=== PATIENT | female | born 2000 | race Two or more races ===

== ENCOUNTER 2024-04-28 14:37 | Emergency (ER) | payer MEDICAID, SELFPAY ==
[2024-04-28 14:58] VITALS: PULSE 108; O2SAT 98
[2024-04-28 15:22] VITALS: BP 124/85; PULSE 100; RESP 12; TEMP 37.2; O2SAT 98; BMI 25.7
--- NOTE | 2024-04-28 15:50 | PD.EDRME ---
Rapid Medical Screening Exam E Arrival date/time: 04/28/24 14:37 23-year-old female presents emergency department complaint of nausea vomiting abdominal pain Chief Complaint: Abdominal Pain Vital signs: Vital Signs Temperature 98.9 F 04/28/24 15:22 Pulse Rate 100 04/28/24 15:22 Respiratory Rate 12 04/28/24 15:22 Blood Pressure 124/85 H 04/28/24 15:22 Pulse Oximetry (%) 98 04/28/24 15:22 Oxygen Delivery Method Room Air 04/28/24 15:22
--- NOTE | 2024-04-28 15:55 | PC.NURSE ---
[email or web address]. checked outside and lobby.
[2024-04-28] MEDS: ONDANSETRON ODT 4 MG TABRAP PO ×2 (16:09→19:40)
[2024-04-28 16:32] LABS: Basophils % (Auto) 1 % (0-2.5); Eosinophils # (Auto) 0.2 Thou/mm3 (0.0-0.5); Eosinophils % (Auto) 2 % (0-10); Hematocrit 38.2 % (36.0-46.0); Hemoglobin 13.1 g/dL (12.0-16.0); Immature Granulocytes % (Auto) 0 % (0-0); Immature Granulocytes Auto 0.02 Thou/mm3 (0.00-0.00); Lymphocytes # (Auto) 2.6 Thou/mm3 (1.0-4.8); Lymphocytes % (Auto) 35 % (10-50); Mean Corpuscular HGB Conc 34.3 g/dl (31.0-37.0); Mean Corpuscular Volume 88 fL (80-100); Monocytes # (Auto) 0.5 Thou/mm3 (0.0-0.8); Monocytes % (Auto) 6 % (0-12); Neutrophils # (Auto) 4.2 Thou/mm3 (1.8-7.7); Neutrophils % (Auto) 56 % (37-80); Nucleated Red Blood Cell % 0 /100 WBC (0); Platelet Count 315 Thou/mm3 (140-440); RDW Standard Deviation 41.1 fL (36.4-46.3); Red Blood Count 4.36 Miln/mm3 (4.00-5.20); White Blood Count 7.4 Thou/mm3 (3.6-11.0)
[2024-04-28 16:32] LABS: Collection Type, Urine Clean Catch
[2024-04-28 16:41] LABS: Bilirubin,Urine Negative (Negative); Blood,Urine Trace (Negative); Clarity,Urine Clear (Clear/Hazy); Color,Urine Lt-Yellow (Lt Yel-Yel); Culture Indicated,Urine Not Indicated; Glucose, Urine Negative (Negative); HCG Qualitative,Urine Negative; Ketones,Urine Negative (Negative); Leukocyte Esterase,Urine Negative (Negative); Nitrite,Urine Negative (Negative); PH,Urine 6.5 (5.0-7.0); Protein,Urine Negative (Neg - Trace); RBC,Urine 2 /hpf (0-3); Specific Gravity,Urine 1.012 (1.001-1.035); Squamous Epithelial Cell,Urine 1 /hpf (0-5); Urobilinogen,Urine Negative mg/dL (0.0-1.0); WBC,Urine 1 /hpf (0-5)
[2024-04-28 16:52] LABS: Alanine Aminotransferase 10 U/L (10-49); Albumin, Serum 4.7 gm/dL (3.5-5.0); Albumin/Globulin Ratio 1.7 (1.2-2.2); Alkaline Phosphatase 73 U/L (46-116); Anion Gap 9 (7-16); Aspartate Amino Transferase 14 U/L (0-34); BUN/Creatinine Ratio 14 Ratio (12-20); Bilirubin,Total 0.5 mg/dL (0.3-1.2); Blood Urea Nitrogen 11 mg/dL (9-23); Calcium 9.7 mg/dL (8.3-10.6); Calcium (Corrected) 9.7 mg/dL (8.5-10.1); Carbon Dioxide 26.2 mMol/L (20.0-31.0); Chloride 103 mMol/L (98-107); Creatinine (Component) 0.8 mg/dL (0.6-1.3); Estimated Creatinine Clearance 105.4 mL/min (>60); Globulin 2.8 gm/dL (2.3-3.5); Glucose 106 mg/dL (74-106); Lipase 38 U/L (12-53); Osmolality,Calculated 275 (275-295); Potassium 3.6 mMol/L (3.4-5.1); Sodium 138 mMol/L (136-145); Total Protein 7.5 gm/dL (5.7-8.2); eGFR > 60 See Note
--- NOTE | 2024-04-28 19:26 | EDNOTE_ITS ---
Nausea/Vomit./Diarrhea-RME/HPI General Chief complaint: Abdominal Pain Stated complaint: RIGHT LOWER QUADRANT PAIN WITH N/V Time Seen by Provider: 04/28/24 18:29 Arrival date/time: 04/28/24 14:37 Limitations: no limitations RME / HPI RME / HPI Narrative: 04/28/24 14:37 23-year-old female presents emergency department complaint of nausea vomiting abdominal pain DR. LANCE MAIN ED EVALUATION: 23 year old female presents to the Emergency Department with complaints of nausea, vomiting, diarrhea, and right lower abdominal pain. Symptoms are moderate. Onset of symptoms since Saturday night, 3 days ago. She states the pain was aching and mild to moderate; she took Tylenol for the pain. PMHx: Denies any PMHx, surgeries, daily medications, or known allergies. Social Hx: No tobacco, alcohol, or substance use. Related Data Home Medications ?Medication ?Instructions ?Recorded ?Confirmed No Known Home Medications 04/09/22 04/09/22 Allergies Allergy/AdvReac Type Severity Reaction Status Date / Time No Known Allergies Allergy Verified 04/28/24 15:00 Review of Systems Review of Systems Systems Reviewed: All systems reviewed, normal except as documented Narrative Review of Systems: GEN: No fever, no chills, no weight loss EYES: No discharge, no visual changes, no pain HEENT: No ear pain, no congestion, no sore throat PULM: No shortness of breath, no cough, no congestion CV: No chest pain, no dyspnea on exertion, no palpitations GI: + nausea, + vomiting, + diarrhea, + right lower abdominal pain, no constipation : No frequency, no urgency and no dysuria MUSC/SKEL: No joint pain, no back pain SKIN: No rash PSYCH: No hallucinations, no depression HEME/LYMPH: No easy bleeding or bruising tendencies NEURO: No weakness, no headache Past Medical History Social History SMOKING STATUS: Never smoker SUBSTANCE USE: does not use ALCOHOL: Never ED Exam General Limitations: Present no limitations General appearance: Present alert and in no apparent distress Head Head exam: Present atraumatic, normocephalic and normal inspection Eye Eye exam: Present normal appearance, PERRL and EOMI ENT ENT exam: Present normal exam, normal oropharynx and mucous membranes moist Neck Neck exam: Present normal inspection, full ROM and trachea midline Chest Chest inspection: Present normal inspection and symmetric chest wall rise Respiratory Respiratory exam: Present normal lung sounds bilaterally Cardiovascular Cardiovascular exam: Present regular rate, normal rhythm and normal heart sounds Abdominal Exam Abdominal exam: Present normal bowel sounds Abdominal tenderness: Present RLQ Extremities Exam Extremities exam: Present normal inspection and full ROM Back Exam Back exam: Present normal inspection and full ROM Neurological Exam Neurological exam: Present alert, oriented X3 and CN II-XII intact Psychiatric Psychiatric exam: Present normal affect and normal mood Skin Skin exam: Present warm, dry, intact and normal color Course Quality Measures none Orders Category Date Time Status Bedside Influenza A&B Antigen Test NOW Care 04/28/24 15:50 Completed CBC Stat Lab 04/28/24 16:24 Completed Comprehensive Metabolic Panel Stat Lab 04/28/24 16:24 Completed HCG Qualitative,Urine Stat Lab 04/28/24 15:55 Completed Lipase Stat Lab 04/28/24 16:24 Completed UA, C/S IF [Urinalysis, C/S if Indicated] Stat Lab 04/28/24 15:55 Completed Ondansetron Odt [Zofran Odt] Med 04/28/24 15:50 Discontinued 4 mg PO X1 ONE Ondansetron Odt [Zofran Odt] Med 04/28/24 19:30 Discontinued 4 mg PO X1 ONE Ondansetron Odt [Zofran Odt] Med 04/28/24 19:36 Discontinued 4 mg PO X1 ONE Reevaluation(s) Reevaluation #1: Patient states she has no more pain and would like to go home AMA. This patient is choosing to leave against medical advice. I have personally explained to the patient that choosing to do so may result in permanent bodily harm or . I discussed a great length that without further evaluation and monitoring there may be unforeseen circumstances and deterioration causing permanent bodily harm or as a result of their choice. The patient is alert, oriented and competent at this time. The patient states that they are aware of the serious risks as explained, but they continue to wish to leave against medical advice. In light of their decision to leave AMA, follow-up has been arranged and they ar e aware of the importance of following up as instructed. They have been advised that they should return to the ED immediately if they change their mind at any time, or if their condition begins to change or worsen. Time: 19:30 Vital Signs Vital signs: Vital Signs Temperature 98.9 F 04/28/24 15:22 Pulse Rate 100 04/28/24 15:22 Respiratory Rate 12 04/28/24 15:22 Blood Pressure 124/85 H 04/28/24 15:22 Pulse Oximetry (%) 98 04/28/24 15:22 Oxygen Delivery Method Room Air 04/28/24 15:22 Nausea/Vomiting/Diarrhea MDM Narrative MDM Narrative:: Jennifer Owen am scribing for and in the presence of Dr. Lance. Patient data External records reviewed:: [facility] previous records (Reviewed last ED visit dated 01/21/23, discharged with the following: Head injury.) Clinical information provided by:: patient Social determinants that could affect healthcare access:: none Patient has the following chronic illnesses:: Denies any PMHx, surgeries, daily medications, or known allergies. How is presenting disease/condition affected by chronic disease/condition?: no chronic disease Evaluation data The following diagnostics were reviewed and interpreted by me:: lab results Lab and/or radiology exams considered but not ordered:: CT to rule out appendicitis but patient would like to leave AMA. Interpretation Summary: See under MDM narrative. Medications / Prescriptions Medications / Prescriptions considered but not ordered:: none Medication administrations:: Medication Administration History Discontinued Medications Ondansetron HCl (Ondansetron Odt 4 Mg Tabrap) 4 mg PO X1 ONE; Protocol Stop: 04/28/24 15:51 Last Admin: 04/28/24 16:09 Dose: 4 mg Documented By: JUANCARLOS Ondansetron HCl (Ondansetron Odt 4 Mg Tabrap) 4 mg PO X1 ONE; Protocol Stop: 04/28/24 19:31 Last Admin: 04/28/24 19:40 Dose: 4 mg Documented By: HEDY Ondansetron HCl (Ondansetron Odt 4 Mg Tabrap) 4 mg PO X1 ONE; Protocol Stop: 04/28/24 19:37 Last Admin: 04/28/24 19:40 Dose: Not Given Documented By: HEDY Non-Admin Reason: Duplicate Medication on eMAR see above Consultations Consultation(s) initiated? (list below): No Diagnosis Nausea Differential Diagnosis: other (viral syndrome, appendicitis, cyst, dehydration, electrolyte imbalance, UTI) Most likely diagnosis given after review of the tests above:: Abdominal pain Admission Indicated Admission indicated?: not indicated Admission Request Was there a request for admission?: No Disposition Plan Disposition Plan: other (specify) (Against medical advise) Discharge Plan Plan Patient Disposition: Left Against Medical Advice Patient condition on transfer: Stable Prescriptions/Referrals Prescriptions/Med Rec: No Action No Known Home Medications Referrals: No Primary/Family,Physician [Primary Care Provider] - In 1 week Problem List Clinical Impression: Abdominal pain Patient/Caregiver Discharge Instructions Diet Instructions: Stay hydrated with Pedialyte and/or Gatorade. Additional Instructions: Today you have elected not to stay for further evaluation. I will give you some antinausea medication. You can take it [id number] Tylenol 650 mg 3 times a day if needed for pain. Return to the emergency department in the next 12 to 24 hours if you have fever, increasing pain, you cannot tolerate liquids, or any other concerns. Print Language: Divehi
--- NOTE | 2024-04-28 19:41 | PC.NURSE ---
pt decided to leave AMA. all risks and benefits explained up to and included . pt verbally states she understands and states she would come back if symptoms worsen or continue. pt a/ox3. nad. dr Loredo at bedside speaking to pt. AMA signed.
== END 2024-04-28 19:43 | disposition left against medical advice (07) ==
PROVIDERS: Nurse Practitioner Primary Care; Emergency Provider Emergency Medicine
DX: R10.31 Right lower quadrant pain (principal); Z53.29 Procedure and treatment not carried out because of patient's decision for other reasons
CPT/HCPCS: 36415; 80053; 81001; 81025; 83690; 85025; 87400; 99283; Q0162